=== PATIENT | male | born 1945 | race Caucasian/White ===

== ENCOUNTER 2021-01-03 14:54 | Inpatient (IN) | payer MEDICARE ==
[~2021-01-03] VITALS: Ht 185.4 cm; Wt 86.2 kg
--- NOTE | 2021-01-03 15:48 | NUR ---
COVID NASAL SWAB TEST DONE PER MD ORDER; SENT TO LAB.
[2021-01-03 15:53] LABS: HEMATOCRIT 38.4 % (36.7-47.1); MEAN CORPUSCULAR HEMOGLOBIN 29.2 uug (23.8-33.4); MEAN CORPUSCULAR VOLUME 84.8 fL (73.0-96.2); PLATELET COUNT (AUTO) 341 K/uL (152-348)
[2021-01-03 15:58] LABS: CARBON DIOXIDE 27 mmol/L (21-32); CHLORIDE 101 mmol/L (98-107); CREATININE 1.2 mg/dL (0.6-1.3); GLUCOSE 121 mg/dL (74-106); UREA NITROGEN, BLOOD 20 mg/dL (7-18)
[2021-01-03 16:10] LABS: ALANINE AMINOTRANSFERASE 382 U/L (16-63); ALKALINE PHOSPHATASE 265 U/L (50-136); ASPARTATE AMINOTRANSFERASE 183 U/L (15-37); BILIRUBIN,DIRECT 0.4 mg/dL (0.0-0.2); TOTAL PROTEIN, SERUM 6.7 g/dL (6.4-8.2)
[2021-01-03] MEDS ORDERED: SWABABLE VALVE TRANSFER SET EA MC ONE (17:23)
[2021-01-03] MEDS ORDERED: IOHEXOL 350 100 ML INFUS..BTL ONE (17:23)
[2021-01-03] MEDS ORDERED: IV NORMAL SALINE 250 ML IV ONE (18:13)
[2021-01-03] MEDS ORDERED: AZITHROMYCIN IV 500 MG in IV DEXTROSE 5% 250 ML IV ONE (18:30)
[2021-01-03] MEDS ORDERED: CEFTRIAXONE 1 G in IV DEXTROSE 5% 50 ML IV ONE (18:30)
[2021-01-03] MEDS ORDERED: MAGNESIUM HYDROXIDE 30 ML LIQUID UDC PO PRN (19:30)
[2021-01-03] MEDS ORDERED: Z GUARD REMEDY PASTE 57 GM TUBE TOP PRN (19:30)
[2021-01-03] MEDS ORDERED: GUAIFENESIN/DEXTROMETHORPHAN 5 ML UDC PO PRN (19:30)
[2021-01-03] MEDS ORDERED: ONDANSETRON 4 MG/2 ML VIAL IV PRN (19:30)
[2021-01-03] MEDS ORDERED: ALBUTEROL SULFATE 8 GM HFA.AER.AD IH PRN (19:30)
[2021-01-03] MEDS ORDERED: CEFTRIAXONE /D5W 50ML IVPB **ER PYXIS IV ONE (19:50)
[2021-01-03] MEDS ORDERED: AZITHROMYCIN 500MG/ D5W 250ML IVPB **ER PYXIS ONLY IV ONE (20:41)
--- NOTE | 2021-01-04 00:37 | NUR ---
Report given to Han FLETCHER Tele.
[2021-01-04 01:08] LABS: *BILIRUBIN,URIN NEGATIVE (NEGATIVE); *BLOOD, URINE NEGATIVE (NEGATIVE); *CLARITY,URINE CLEAR (CLEAR); *COLOR,URINE DARK YELLOW (YELLOW); *KETONES,URINE NEGATIVE (NEGATIVE); LEUKOCYTE ESTERASE ,URINE NEGATIVE (NEGATIVE); NITRITE, URINE NEGATIVE (NEGATIVE); UGLUCOSE NEGATIVE (NEGATIVE)
[2021-01-04] MEDS: ENOXAPARIN SODIUM 40 MG/0.4 ML DISP.SYRIN SQ SCH ×2 (01:40→21:00)
[2021-01-04] MEDS: ACETAMINOPHEN 325 MG TABLET PO PRN (01:40)
--- NOTE | 2021-01-04 02:00 | NUR ---
Patient admitted to Tele unit from [facility] via [facility] D[facility] of [facility].Patient alert x2-3 with periods of forgetful.on Ra.Denies Sob at this time. No s/s of distress noted.Iv on left AC patent and intact.Physical assessment done. Safety measures in place.Instructed patient to use call light for assistance .Will continue to monitor.
[2021-01-04 02:01] LABS: BACTERIA,URINE NONE SEEN /HPF (NONE SEEN); RBC,URINE 0-3 /HPF (0-3); WBC,URINE 0-3 /HPF (0-3)
[2021-01-04 02:02] LABS: SQUAMOUS EPITHELIAL CELL,UR FEW /HPF (NONE SEEN)
[2021-01-04 02:09] VITALS: BP 129/66
[2021-01-04 04:35] VITALS: BP 114/48
[2021-01-04] MEDS ORDERED: ALBUTEROL SULFATE 2.5 MG/3 ML NEBU NEB PRN (06:15)
[2021-01-04] MEDS: PANTOPRAZOLE SODIUM 40 MG TABLET.DR PO SCH (06:16)
[2021-01-04 07:35] LABS: HEMATOCRIT 38.9 % (36.7-47.1); MEAN CORPUSCULAR HEMOGLOBIN 29.4 uug (23.8-33.4); MEAN CORPUSCULAR VOLUME 84.6 fL (73.0-96.2); PLATELET COUNT (AUTO) 365 K/uL (152-348)
[2021-01-04 07:47] LABS: CARBON DIOXIDE 29 mmol/L (21-32); CHLORIDE 101 mmol/L (98-107); CREATININE 1.5 mg/dL (0.6-1.3); GLUCOSE 95 mg/dL (74-106); POTASSIUM 4.3 mmol/L (3.5-5.1); UREA NITROGEN, BLOOD 20 mg/dL (7-18)
--- NOTE | 2021-01-04 08:00 | NUR ---
awake alert and oriented x 3, denies of shortness of breath, states still feels weak and with some body aches, offered some tylenol but refused at this time, breakfast served but poor intake, explained plan of care- verbalized understanding, safety measures maintained , call light within reach, bed alarm on, uses urinal for voiding,
[2021-01-04 08:25] LABS: ALANINE AMINOTRANSFERASE 348 U/L (16-63); ALKALINE PHOSPHATASE 258 U/L (50-136); ASPARTATE AMINOTRANSFERASE 136 U/L (15-37); BILIRUBIN,TOTAL 0.8 mg/dL (0.2-1.0); CHOLESTEROL 140 mg/dL (<200); FERRITIN 2611 ng/mL (26-388); HDL CHOLESTEROL 39 mg/dL (40-60); LACTATE DEHYDROGENASE 318 U/L (85-227); MAGNESIUM 2.5 mg/dL (1.8-2.4); PHOSPHOROUS 3.5 mg/dL (2.5-4.9); TOTAL PROTEIN, SERUM 6.8 g/dL (6.4-8.2); TRIGLYCERIDES 133 MG/DL (30-150)
[2021-01-04 08:40] LABS: THYROID STIMULATING HORMONE 4.747 mIU/mL (0.358-3.740)
[2021-01-04] MEDS: IV NS 1000 ML 1,000 ML IV PRN (11:39)
[2021-01-04 12:00] VITALS: BP 124/66
--- NOTE | 2021-01-04 14:00 | NUR ---
seen by Katie Jeter EDUCATION PROGRAM MANAGER with orders
[2021-01-04] MEDS: AMLODIPINE 5 MG TABLET PO SCH (14:27)
[2021-01-04 16:10] VITALS: BP 125/61
--- NOTE | 2021-01-04 18:07 | NUR ---
seen by Dr Gastelum- with orders, no distress noted, remains on room air, some occasional non-productive cough, all needs attended and met, call light within reach, isolation maintained while PCR result pending
[2021-01-04 20:09] VITALS: BP 143/79
[2021-01-04] MEDS: CEFTRIAXONE 1 G in IV DEXTROSE 5% 50 ML IV SCH (20:44)
[2021-01-04] MEDS: AZITHROMYCIN IV 500 MG in IV DEXTROSE 5% 250 ML IV SCH (21:00)
[2021-01-05 00:03] VITALS: BP 140/60
[2021-01-05 04:15] VITALS: BP 140/71
[2021-01-05] MEDS: IV NS 1000 ML 1,000 ML IV PRN (04:28)
[2021-01-05] MEDS: PANTOPRAZOLE SODIUM 40 MG TABLET.DR PO SCH (06:54)
[2021-01-05] MEDS: LEVOTHYROXINE SODIUM 75 MCG TABLET PO SCH (06:54)
--- NOTE | 2021-01-05 07:40 | NUR ---
lovenox given at 2100 on 01/04 cosigned by Mara, charge nurse
--- NOTE | 2021-01-05 07:42 | NUR ---
patient on room air, O2 sat 94-96%, will continue plan of care
[2021-01-05 07:45] LABS: HEMATOCRIT 38.3 % (36.7-47.1); MEAN CORPUSCULAR HEMOGLOBIN 29.3 uug (23.8-33.4); MEAN CORPUSCULAR VOLUME 84.9 fL (73.0-96.2); PLATELET COUNT (AUTO) 361 K/uL (152-348)
[2021-01-05 08:00] VITALS: BP 146/80
[2021-01-05 08:40] LABS: BILIRUBIN,DIRECT 0.2 mg/dL (0.0-0.2); BILIRUBIN,TOTAL 0.6 mg/dL (0.2-1.0); CREATININE 1.2 mg/dL (0.6-1.3); MAGNESIUM 2.3 mg/dL (1.8-2.4); PHOSPHOROUS 2.8 mg/dL (2.5-4.9); TOTAL PROTEIN, SERUM 6.5 g/dL (6.4-8.2)
[2021-01-05] MEDS: ACETAMINOPHEN 325 MG TABLET PO PRN (09:05)
[2021-01-05] MEDS: AMLODIPINE 5 MG TABLET PO SCH (09:05)
--- NOTE | 2021-01-05 11:13 | NUR ---
SEEN BY DR PERRY FOR PULMO FOLLOW-UP SEE NOTES. PATIENT CONTINUE TO TOLERATE RA SATURATING 97%
[2021-01-05 12:30] VITALS: BP 138/84
[2021-01-05] MEDS ORDERED: DEXAMETHASONE SOD PHOSPHATE 10 MG INJ IV SCH (15:30)
[2021-01-05] MEDS: DEXAMETHASONE SOD PHOSPHATE 4 MG INJ IV SCH (16:33)
[2021-01-05 17:13] VITALS: BP 140/70
[2021-01-05 20:35] VITALS: BP 154/64
[2021-01-05] MEDS: CEFTRIAXONE 1 G in IV DEXTROSE 5% 50 ML IV SCH (20:54)
[2021-01-05] MEDS: ENOXAPARIN SODIUM 40 MG/0.4 ML DISP.SYRIN SQ SCH (20:57)
[2021-01-05] MEDS: AZITHROMYCIN IV 500 MG in IV DEXTROSE 5% 250 ML IV SCH (20:58)
--- NOTE | 2021-01-06 04:00 | NUR ---
Quiet night. AAOx4 No acute distress noted. On IV ABT given as scheduled. Tolerated well. No ill effects noted. VSS. 96% on RA. Denies any pain nor any SOB. Will monitor patient. Contact precautions maintained.Voiding well.
[2021-01-06 04:35] VITALS: BP 145/70
[2021-01-06] MEDS: PANTOPRAZOLE SODIUM 40 MG TABLET.DR PO SCH (06:21)
[2021-01-06] MEDS: LEVOTHYROXINE SODIUM 75 MCG TABLET PO SCH (06:21)
[2021-01-06 07:08] LABS: HEMATOCRIT 39.1 % (36.7-47.1); MEAN CORPUSCULAR VOLUME 83.7 fL (73.0-96.2); PLATELET COUNT (AUTO) 436 K/uL (152-348)
[2021-01-06 07:33] LABS: CREATININE 1.2 mg/dL (0.6-1.3); MAGNESIUM 2.2 mg/dL (1.8-2.4); PHOSPHOROUS 2.6 mg/dL (2.5-4.9); POTASSIUM 4.8 mmol/L (3.5-5.1)
[2021-01-06] MEDS: ACETAMINOPHEN 325 MG TABLET PO PRN (08:38)
[2021-01-06] MEDS: AMLODIPINE 5 MG TABLET PO SCH (08:38)
[2021-01-06] MEDS: DEXAMETHASONE SOD PHOSPHATE 4 MG INJ IV SCH (08:38)
[2021-01-06] MEDS ORDERED: ATOR40TA PO (10:11)
[2021-01-06] MEDS ORDERED: BENA20TA9 PO (10:11)
[2021-01-06] MEDS ORDERED: AMLO-212 PO (10:12)
[2021-01-06] MEDS ORDERED: LEVO75TA PO (10:12)
--- NOTE | 2021-01-06 11:05 | NUR ---
SEEN BY DR PERRY AND SAID CLEAR FOR DISCHARGE FAR RESPIRATORY STANDPOINT
--- NOTE | 2021-01-06 11:06 | NUR ---
AWAKE ALERT AND ORIENTED X3 DENIES COUGHING , SOB, OR PAIN. O2 SAT 97% RA. AFEBRILE
[2021-01-06 12:00] VITALS: BP 105/65
[2021-01-06 14:58] LABS: HEPATITIS A AB, IgM Negative
[2021-01-06 14:59] LABS: HEPATITIS A AB, TOTAL Positive; HEPATITIS B SURFACE AG Negative
[2021-01-06 16:00] VITALS: BP 100/63
[2021-01-06 18:06] LABS: *URINE TOTAL PROTEIN RANDOM 55.4 mg/dL (<150/24HR)
--- NOTE | 2021-01-06 19:30 | NUR ---
Received patient lying in bed. AOX4. IV on L AC intact and patent. On room air, saturating at 97%. Patient denies SOB, chest pain or dizziness. Safety precautions and comfort measures initiated. Will continue to monitor.
[2021-01-06 20:40] VITALS: BP 148/85
[2021-01-06] MEDS: CEFTRIAXONE 1 G in IV DEXTROSE 5% 50 ML IV SCH (20:42)
[2021-01-06] MEDS: ENOXAPARIN SODIUM 40 MG/0.4 ML DISP.SYRIN SQ SCH (20:45)
[2021-01-06] MEDS ORDERED: ATORVASTATIN 40 MG TABLET PO SCH (21:00)
[2021-01-06] MEDS: AZITHROMYCIN IV 500 MG in IV DEXTROSE 5% 250 ML IV SCH (21:51)
[2021-01-07 04:23] VITALS: BP 145/80
[2021-01-07] MEDS: PANTOPRAZOLE SODIUM 40 MG TABLET.DR PO SCH (06:30)
[2021-01-07] MEDS: LEVOTHYROXINE SODIUM 75 MCG TABLET PO SCH (06:30)
--- NOTE | 2021-01-07 06:47 | NUR ---
Patient slept through the night. Patient denies SOB, chest pain or dizziness. IV site still intact. On room air, saturating well. All due medications were given as ordered. All due medications were given as ordered. Patient safety precautions and comfort measures were maintained. Will endorse to day shift nurse.
[2021-01-07] MEDS ORDERED: LEVOTHYROXINE SODIUM 75 MCG TABLET PO SCH (07:00)
[2021-01-07 07:43] LABS: HEMATOCRIT 37.5 % (36.7-47.1); MEAN CORPUSCULAR HEMOGLOBIN 29.4 uug (23.8-33.4); MEAN CORPUSCULAR VOLUME 84.3 fL (73.0-96.2); PLATELET COUNT (AUTO) 446 K/uL (152-348)
[2021-01-07 08:20] LABS: BILIRUBIN,DIRECT 0.2 mg/dL (0.0-0.2); BILIRUBIN,TOTAL 0.5 mg/dL (0.2-1.0); CREATININE 1.3 mg/dL (0.6-1.3); PHOSPHOROUS 2.3 mg/dL (2.5-4.9); POTASSIUM 4.1 mmol/L (3.5-5.1); TOTAL PROTEIN, SERUM 6.3 g/dL (6.4-8.2)
[2021-01-07] MEDS ORDERED: BENAZEPRIL HCL 20 MG TABLET PO SCH (09:00)
[2021-01-07] MEDS ORDERED: AMLODIPINE 5 MG TABLET PO SCH (09:00)
[2021-01-07] MEDS: DEXAMETHASONE SOD PHOSPHATE 4 MG INJ IV SCH (09:16)
[2021-01-07] MEDS: AMLODIPINE 5 MG TABLET PO SCH (09:39)
[2021-01-07 11:00] VITALS: BP 127/61
[2021-01-07] MEDS ORDERED: NEUTRA PHOS PACKET PO ONE (16:00)
[2021-01-07 16:05] VITALS: BP 114/60
--- NOTE | 2021-01-07 17:52 | NUR ---
Patient discharged home, picked up by . 20 gauge removed from left AC. Tip intact, no signs of bleeding noted. VSS. No signs of acute distress notedf. No c/o pain or SOB. D/C instructions given to patient, verbalized understanding.
[2021-01-11 15:06] LABS: ALDOSTERONE 4.1 ng/dL (0.0-30.0)
== END 2021-01-07 17:35 | disposition home or self-care (01) | DRG 177 ==
LOC: ER 14:56 → TELE3 23:55 → MEDSURG3 01-05 09:23
PROVIDERS: ADMIT Nurse Practitioner Acute Care; ATTEND Nurse Practitioner Acute Care
DX: U07.1 COVID-19 (principal); G93.41 Metabolic encephalopathy; J12.82 Pneumonia due to coronavirus disease 2019; N17.0 Acute kidney failure with tubular necrosis; E03.9 Hypothyroidism, unspecified; T50.8X5A Adverse effect of diagnostic agents, initial encounter; Y92.238 Other place in hospital as the place of occurrence of the external cause; E27.8 Other specified disorders of adrenal gland; E78.5 Hyperlipidemia, unspecified; E86.0 Dehydration; I10 Essential (primary) hypertension; I45.10 Unspecified right bundle-branch block; K75.81 Nonalcoholic steatohepatitis (NASH); K80.20 Calculus of gallbladder without cholecystitis without obstruction
CPT/HCPCS: 36415; 70030-TC; 70450; 71045; 71275; 76705; 82088; 83605; 83615; 83735; 84100; 84156; 84244; 84443; 85025; 85651; 85730; 86140; 86704; 86705; 86708; 86709; 86803; 87040; 87086; 87340; 87400; 87806; 93005; 97161; A4663; G0378; J0456; J0696; J1100; J1650; J3535; J7030; J7050; J7060; Q9967; U0003